=== PATIENT | male | born 1955 | race Caucasian/White ===

== ENCOUNTER 2021-12-19 11:00 | Inpatient (IN) | payer OTHER ==
[~2021-12-19] VITALS: Ht 218.4 cm; Wt 77.1 kg
[~2021-12-19 11:00] MED LIST: ATENOLOL25 GM
[2021-12-19] MEDS ORDERED: TENORMIN25 MG PO (14:48)
== END 2021-12-26 15:06 | disposition designated cancer center or children's hospital (05) | DRG 470 ==
LOC: O/R 12-24 05:45 → SURH 12-24 11:00 → SURG 12-24 14:00 → SURH 12-24 14:45 → SURG 12-26 15:06
PROVIDERS: ADMIT Orthopaedic Surgery; ATTEND Orthopaedic Surgery
PROC: 0SRD0J9 Replacement of Left Knee Joint with Synthetic Substitute, Cemented, Open Approach (ICD-10-PCS; principal; 2021-12-24 14:45)
DX: M17.12 Unilateral primary osteoarthritis, left knee (principal); M85.662 Other cyst of bone, left lower leg; I10 Essential (primary) hypertension; Z20.822 Contact with and (suspected) exposure to COVID-19